=== PATIENT | female | born 1940 | race Hispanic/Latino ===

== ENCOUNTER 2019-05-17 06:15 | Day surgery (SDC) | payer OTHER ==
[~2019-05-17] VITALS: Ht 165.1 cm; Wt 65.8 kg
[~2019-05-17 06:15] MED LIST: ALEN70TA10 PO; CALC600T12 PO; CHOL400L PO; FOLI0.8T22 PO; PRAV40TA3 PO; PRIM50TA29 PO; PROP20TA7 PO
[2019-05-17] MEDS ORDERED: SODIUM CHLORIDE 0.9% 1000ML 1,000 ML IV ONE (06:23)
[2019-05-17 07:33] VITALS: BP 158/67
[2019-05-17 09:00] VITALS: BP 101/54
[2019-05-17 09:05] VITALS: BP 115/62
[2019-05-17 09:10] VITALS: BP 126/68
--- NOTE | 2019-05-17 12:57 | NUR ---
PT LEFT VIA WHEELCHAIR IN PVT CAR, PT. V/S STABLE NO COMPLICATION UPON D/C, INSTRUCTIONS GIVEN TO FAMILY MEMBER ALONG WITH F/U APPT.
== END 2019-05-17 09:23 | disposition home or self-care (01) ==
LOC: ENDO 06:15 → DAH 06:15 → ENDO 09:23
PROVIDERS: ATTEND Internal Medicine Gastroenterology
DX: Z12.11 Encounter for screening for malignant neoplasm of colon (principal); D12.3 Benign neoplasm of transverse colon; E78.5 Hyperlipidemia, unspecified; I10 Essential (primary) hypertension; M81.0 Age-related osteoporosis without current pathological fracture; M19.90 Unspecified osteoarthritis, unspecified site; Z86.010 Personal history of colon polyps; Z96.659 Presence of unspecified artificial knee joint; Z90.49 Acquired absence of other specified parts of digestive tract; Z98.890 Other specified postprocedural states; Z79.899 Other long term (current) drug therapy; Z88.8 Allergy status to other drugs, medicaments and biological substances
CPT/HCPCS: 45380; 88305; A4215; A4221; A4222; A4223; A4606; A4615; A4663; J7030

== ENCOUNTER 2022-02-16 02:10 | Emergency (ER) | payer OTHER ==
[~2022-02-16] VITALS: Ht 157.5 cm; Wt 59.5 kg
[~2022-02-16 02:10] MED LIST changes: -ALEN70TA10 PO; +ALEN70TA80 PO; +CALC-1125 PO; -CALC600T12 PO
[2022-02-16 02:41] LABS: BASOPHILS % (AUTO) 0.4 % (0.0-5.0); EOSINOPHILS % (AUTO) 0.2 % (0.0-8.0); HEMATOCRIT 40.6 % (36-48); LYMPHOCYTES % (AUTO) 38.7 % (21.0-51.0); MEAN CORPUSCULAR HEMOGLOBIN 30.3 pg (27.0-33.0); MEAN CORPUSCULAR HGB CONC 34.2 g/dL (32.0-36.0); MEAN CORPUSCULAR VOLUME 88.6 fL (79-99); MONOCYTES % (AUTO) 9.7 % (3.0-13.0); NEUTROPHILS % (AUTO) 50.6 % (40.0-77.0); PLATELET COUNT (AUTO) 304 K/uL (130-400); RED BLOOD CELL COUNT(AUTO) 4.58 MIL/uL (4.00-5.50); RED CELL DISTRIBUTION WIDTH 14.1 % (11.0-15.5)
[2022-02-16 02:55] LABS: CREATININE 1.5 mg/dL (0.5-1.5); POTASSIUM 3.5 mmol/L (3.5-5.1)
[2022-02-16 03:00] LABS: ALBUMIN 4.1 g/dL (3.5-5.0); TOTAL PROTEIN, SERUM 7.8 g/dL (6.0-8.3)
[2022-02-16] MEDS ORDERED: 0.9%NACL 1000ML 1,000 ML IV ONE (03:30)
[2022-02-16] MEDS ORDERED: ONDANSETRON ODT 4MG TAB SL ONE (03:30)
[2022-02-16] MEDS ORDERED: MIRT30TA2 PO (05:24)
[2022-02-16] MEDS ORDERED: ONDA-104 PO (05:24)
[2022-02-16 05:32] VITALS: BP 145/74
== END 2022-02-16 05:54 | disposition home or self-care (01) ==
LOC: EDH 02:10
DX: E86.0 Dehydration (principal); R63.0 Anorexia; E78.00 Pure hypercholesterolemia, unspecified; I10 Essential (primary) hypertension; Z90.49 Acquired absence of other specified parts of digestive tract; Z68.24 Body mass index [BMI] 24.0-24.9, adult
CPT/HCPCS: 99285; 96360; 71045; 84484; 80053; 83880; 85025; 36415; 93005; J7030

== ENCOUNTER 2024-01-09 15:58 | Emergency (ER) | payer OTHER ==
[~2024-01-09 15:58] MED LIST changes: +MIRT-144 PO; +ONDA-104 PO
[2024-01-09 16:30] LABS: BASOPHILS # (AUTO) 0.03 K/uL (0.00-0.20); BASOPHILS % (AUTO) 0.3 % (0.0-5.0); EOSINOPHILS # (AUTO) 0.02 K/uL (0.00-0.70); EOSINOPHILS % (AUTO) 0.2 % (0.0-8.0); HEMATOCRIT 33.9 % (36-48); IMMATURE GRANULOCYTE ABSOLUTE 0.15 K/uL (0-1); LYMPHOCYTES # (AUTO) 0.7 K/uL (1.0-4.8); LYMPHOCYTES % (AUTO) 6.3 % (21.0-51.0); MEAN CORPUSCULAR HEMOGLOBIN 31.8 pg (27.0-33.0); MEAN CORPUSCULAR HGB CONC 33.6 g/dL (32.0-36.0); MEAN CORPUSCULAR VOLUME 94.7 fL (79-99); MONOCYTES # (AUTO) 0.1 K/uL (0.1-1.0); NEUTROPHILS # (AUTO) 10.1 K/uL (1.8-7.7); NEUTROPHILS % (AUTO) 90.9 % (40.0-77.0); PLATELET COUNT (AUTO) 245 K/uL (130-400); RED BLOOD CELL COUNT(AUTO) 3.58 MIL/uL (4.00-5.50); RED CELL DISTRIBUTION WIDTH 13.6 % (11.0-15.5); WHITE BLOOD COUNT (AUTO) 11.2 K/uL (4.8-10.8)
[2024-01-09 16:36] LABS: RAPID GROUP A STREP negative (NEGATIVE)
[2024-01-09 16:39] LABS: SARS-CoV-2, RNA, NAAT NEGATIVE SARS CoV-2 (NEGATIVE)
[2024-01-09] MEDS: ondanSETRON 4MG INJ IVP ONE (16:40)
[2024-01-09] MEDS: 0.9%NACL 1000ML 1,000 ML IV ONE (16:40)
[2024-01-09 16:41] VITALS: TEMP 102.9
[2024-01-09 16:41] LABS: CREATININE 1.1 mg/dL (0.5-1.0); POTASSIUM 4.2 mmol/L (3.5-5.1)
[2024-01-09] MEDS: acetaMINOPHEN 500 MG TABLET PO ONE (16:41)
[2024-01-09 16:45] LABS: INFLUENZA TYPE A Negative For Type A (NEGATIVE); INFLUENZA TYPE B Negative For Type B (NEGATIVE)
[2024-01-09 17:35] LABS: APPEARANCE,URINE CLEAR (CLEAR); BILIRUBIN,URINE NEGATIVE (NEGATIVE); COLOR,URINE LIGHT-YELLOW (YELLOW); GLUCOSE, URINE (UA) NEGATIVE (NEGATIVE); KETONES,URINE NEGATIVE (NEGATIVE); LEUKOCYTE ESTERASE ,URINE NEGATIVE Leu/uL (NEGATIVE); NITRATE,URINE NEGATIVE (NEGATIVE); OCCULT BLOOD,URINE NEGATIVE (NEGATIVE); PROTEIN,URINE NEGATIVE (NEGATIVE); UROBILINOGEN,URINE 0.2 mg/dL (0.2-1.0)
[2024-01-09 17:36] LABS: ADD UA MICROSCOPIC YES
[2024-01-09 17:38] LABS: BACTERIA,URINE RARE /HPF (None Seen); MUCUS,URINE RARE LPF (None Seen); SQUAMOUS EPITHELIAL CELL,UR RARE /HPF (0-2); WBC,URINE 0-1 /HPF (0-1)
[2024-01-09] MEDS ORDERED: ONDA-243 PO (17:50)
[2024-01-09] MEDS: ketOROlac 30MG VIAL (30MG/ML) IVP ONE (17:55)
[2024-01-09 18:25] VITALS: BP 111/52; PULSE 77; RESP 17; TEMP 100.7; O2SAT 94
== END 2024-01-09 18:30 | disposition home or self-care (01) ==
LOC: EDH 15:58
DX: B34.9 Viral infection, unspecified (principal); E86.0 Dehydration; R51.9 Headache, unspecified; E78.00 Pure hypercholesterolemia, unspecified; I10 Essential (primary) hypertension; Z90.49 Acquired absence of other specified parts of digestive tract; Z79.899 Other long term (current) drug therapy; Z20.822 Contact with and (suspected) exposure to COVID-19
CPT/HCPCS: 99284; 96374; 71045; 87635; 96361; 96375; 80048; 85025; 87040; 87880; 87804 ×2; 83605; 81001; 36415; J7030; J2405; J1885